=== PATIENT | female | born 1955 | race Asian ===

== ENCOUNTER 2022-04-22 17:30 | Emergency (ER) | payer MEDICARE, BC | END 2022-04-22 18:20 | disposition home or self-care (01) | LOC: ERS 17:30 | DX: S01.01XD Laceration without foreign body of scalp, subsequent encounter (principal); I10 Essential (primary) hypertension; E78.5 Hyperlipidemia, unspecified; I48.91 Unspecified atrial fibrillation; W19.XXXD Unspecified fall, subsequent encounter ==